=== PATIENT | male | born 1985 ===

== ENCOUNTER 2023-08-24 02:11 | Outpatient (REF) | payer OTHER, SELFPAY | END 2023-08-24 02:12 | disposition home or self-care (01) | LOC: NPINS 02:11 | PROVIDERS: PCP Family Medicine; Visit Provider Physician Assistant | DX: T63.451D Toxic effect of venom of hornets, accidental (unintentional), subsequent encounter (principal); T63.441D Toxic effect of venom of bees, accidental (unintentional), subsequent encounter; T63.461D Toxic effect of venom of wasps, accidental (unintentional), subsequent encounter | CPT/HCPCS: 83520; 86003 ==

== ENCOUNTER 2023-11-24 11:03 | Outpatient (CLI) | payer OTHER, SELFPAY | END 2023-11-24 11:04 | disposition home or self-care (01) | LOC: AMB 12-06 18:42 | PROVIDERS: PCP Family Medicine; Visit Provider Family Medicine | DX: T63.441A Toxic effect of venom of bees, accidental (unintentional), initial encounter (principal); Y92.89 Other specified places as the place of occurrence of the external cause | CPT/HCPCS: A0425; A0427 ==

== ENCOUNTER 2024-11-07 19:13 | Outpatient (CLI) | payer OTHER, SELFPAY | END 2024-11-07 19:14 | disposition home or self-care (01) | LOC: LKVREF 19:13 | PROVIDERS: PCP Family Medicine; Visit Provider Physician Assistant | DX: J02.9 Acute pharyngitis, unspecified (principal) | CPT/HCPCS: 87070 ==